=== PATIENT | male | born 1975 | race Caucasian/White ===

== ENCOUNTER 2021-02-25 19:44 | Emergency (ER) | payer SELFPAY ==
[2021-02-25] MEDS ORDERED: Ciprofloxacin 500 MG Tab PO STA (20:30)
[2021-02-25] MEDS ORDERED: Naproxen 500 MG Tab PO STA (20:35)
--- NOTE | 2021-02-25 20:35 | EDM.PDOC ---
ED HPI GENERAL MEDICAL PROBLEM - General Stated Complaint: pain in testicles Time Seen by Provider: 02/25/21 20:00 Source of Information: Reports: Patient History Limitations: Reports: No Limitations - History of Present Illness INITIAL COMMENTS - FREE TEXT/NARRATIVE: Patient presented to the ED because of right testicular pain and rt groin pain for the past 2 weeks. There is no associated fever, chills, urinary symptoms. HThere is no urethral discharge or any previous history of STD. He took OTC Ibuprofen without significant relief. Right Pelvic Pain Score (Numeric/FACES): 8 - Related Data Allergies Allergy/AdvReac Type Severity Reaction Status Date / Time No Known Allergies Allergy Verified 11/09/14 00:01 Home Meds: Home Meds Ciprofloxacin HCl [Cipro] 500 mg PO BID #14 tablet 02/25/21 [Rx] Naproxen 500 mg PO BID #14 tablet 02/25/21 [Rx] amLODIPine [Norvasc] 5 mg PO DAILY 02/25/21 [History] Social & Family History - Living Situation & Occupation Living situation: Reports: Occupation: Employed ED ROS GENERAL - Review of Systems Review Of Systems: See Below Constitutional: Reports: No Symptoms HEENT: Reports: No Symptoms Respiratory: Reports: No Symptoms Cardiovascular: Reports: No Symptoms Endocrine: Reports: No Symptoms GI/Abdominal: Reports: No Symptoms : Reports: Other (RT testicular pain) Musculoskeletal: Reports: No Symptoms Skin: Reports: No Symptoms Neurological: Reports: Paresthesia Psychiatric: Reports: No Symptoms ED EXAM, RENAL/ - Physical Exam Exam: See Below Exam Limited By: No Limitations General Appearance: Alert, No Apparent Distress Eye Exam: Bilateral Eye: PERRL Ears: Normal External Exam, Normal Canal Nose: Normal Inspection, Normal Mucosa, No Blood Throat/Mouth: Normal Inspection, Normal Lips, Normal Teeth Head: Atraumatic, Normocephalic Neck: Normal Inspection, Supple, Non-Tender, Full Range of Motion Respiratory/Chest: No Respiratory Distress, Lungs Clear, Normal Breath Sounds, No Accessory Muscle Use, Chest Non-Tender Cardiovascular: Normal Peripheral Pulses, Regular Rate, Rhythm, No Edema, No Gallop, No JVD, No Murmur, No Rub GI/Abdominal: Normal Bowel Sounds, Soft, Non-Tender, No Organomegaly, No Distention, No Abnormal Bruit, No Mass, Pelvis Stable (Male) Exam: Cremasteric Reflex, Scrotum Tenderness (R), Testicular Tenderness (R) Back Exam: Normal Inspection, Full Range of Motion Extremities: Normal Inspection, Normal Range of Motion, Non-Tender Neurological: Alert, Oriented, CN II-XII Intact, Normal Cognition, Normal Gait, Normal Reflexes, No Motor/Sensory Deficits Psychiatric: Normal Affect Course - Vital Signs Text/Narrative:: Naproxen 500 mg PO x1 Cipro 500 mg PO x1 Unable to give urine specimen. He said he just had one before going to the ED. Last Recorded V/S: Last Vital Signs Temp 36.6 C 02/25/21 19:56 Pulse 102 H 02/25/21 19:56 Resp 18 02/25/21 19:56 BP 139/94 H 02/25/21 19:56 Pulse Ox 100 02/25/21 19:56 - Orders/Labs/Meds Meds: Medications Discontinued Medications Generic Name Dose Route Start Last Admin Trade Name Machelle PRN Reason Stop Dose Admin Ciprofloxacin 500 mg 02/25/21 20:30 02/25/21 21:13 Ciprofloxacin 500 Mg Tab PO 02/25/21 20:31 500 mg NOW STA Administration Naproxen 500 mg 02/25/21 20:35 02/25/21 21:13 Naproxen 500 Mg Tab PO 02/25/21 20:36 500 mg NOW STA Administration Departure - Departure Time of Disposition: 21:00 Disposition: Home, Self-Care 01 Condition: Good Clinical Impression: Epididymitis - Discharge Information Prescriptions: Ciprofloxacin HCl [Cipro] 500 mg PO BID #14 tablet Naproxen 500 mg PO BID #14 tablet Instructions: Epididymitis Referrals: PCP,None [Primary Care Provider] - Forms: ED Department Discharge Additional Instructions: Please read discharge instructions on epididymitis Drink at least 2 liters of water daily while being treated Cipro 500 mg twice daily for 7 days Naproxen 500 mg twice daily for 7 days Follow up as needed Sepsis Event Note (ED) - Focused Exam Vital Signs: Vital Signs Temp Pulse Resp BP Pulse Ox 02/25/21 19:56 36.6 C 102 H 18 139/94 H 100
[2021-02-25 20:36] VITALS: BP 139/94; PULSE 102
== END 2021-02-25 21:27 | disposition home or self-care (01) ==
LOC: FB.ED 19:44
DX: N45.1 Epididymitis (principal); Z86.19 Personal history of other infectious and parasitic diseases; Z79.899 Other long term (current) drug therapy
CPT/HCPCS: 99283; A9270